=== PATIENT | female | born 1965 | race Two or more races ===

== ENCOUNTER 2019-09-13 13:51 | Emergency (ER) | payer OTHER ==
[~2019-09-13] VITALS: Ht 157.5 cm; Wt 79.4 kg
[2019-09-13 14:25] VITALS: BP 128/84
[2019-09-13] MEDS ORDERED: MAGNESIUM CITR296 M1 PO (14:54)
[2019-09-13] MEDS ORDERED: ANUSOL-HC25 MG RECTAL (14:54)
[2019-09-13] MEDS ORDERED: COLACE100 MG ORAL (14:54)
--- NOTE | 2019-09-13 15:05 | NUR ---
ER DISCHARGE NOTE: Patient is cleared to be discharged per ERMD, pt is aox4, on room air, with stable vital signs. pt was given dc and prescription instructions, pt was able to verbalize understanding, pt is able to ambulate with steady gait. pt took all belongings.
--- NOTE | 2019-09-13 16:45 | Emergency Room Report ---
History of Present Illness General Chief Complaint: Abdominal Pain Source: Patient, Caregiver Present Illness HPI 54-year-old female presents ED for evaluation. Complaining of constipation with nausea. States that she is been feeling constipated for the last few days. States that she noticed some blood in her stool. Denies any abdominal pain. Denies fevers or chills. Brick Machine Operator at bedside states patient does have history of breast cancer and is recently had chemo and radiation in the last month. None recently. No other aggravating relieving factors. Denies any other associated symptoms Allergies: Coded Allergies: No Known Allergies (Unverified , 09/13/19) Patient History Past Medical History: DM, other - breast cancer Past Surgical History: none Pertinent Family History: none Social History: Denies: smoking, alcohol use, drug use Last Menstrual Period: menopause Now: No Immunizations: UTD Reviewed Nursing Documentation: PMH: Agreed; PSxH: Agreed Nursing Documentation-PMH Past Medical History: No History, Except For Hx Diabetes: Yes Hx Cancer: Yes - Right breast, s/p lumpectomy Review of Systems All Other Systems: negative except mentioned in HPI Physical Exam Vital Signs Date Time Temp Pulse Resp B/P (MAP) Pulse Ox O2 Delivery O2 Flow Rate FiO2 09/13/19 14:00 98.6 92 18 128/84 (99) 95 Room Air Sp02 EP Interpretation: reviewed, normal General Appearance: no apparent distress, alert, GCS 15, non-toxic Head: normocephalic, atraumatic Eyes: bilateral eye normal inspection, bilateral eye PERRL ENT: hearing grossly normal, normal pharynx, no angioedema, normal voice Neck: full range of motion, supple/symm/no masses Respiratory: chest non-tender, lungs clear, normal breath sounds, speaking full sentences Cardiovascular #1: regular rate, rhythm, no edema Cardiovascular #2: 2+ carotid (R), 2+ carotid (L), 2+ radial (R), 2+ radial (L) , 2+ dorsalis pedis (R), 2+ dorsalis pedis (L) Gastrointestinal: normal bowel sounds, non tender, soft, non-distended, no guarding, no rebound Rectal: other - stool in rectum. apartment maintenance technician at bedside. Genitourinary: normal inspection, no CVA tenderness Musculoskeletal: back normal, normal range of motion, gait/station normal, non- tender Neurologic: alert, motor strength/tone normal, oriented x3, sensory intact, responsive, speech normal Psychiatric: judgement/insight normal, memory normal, mood/affect normal, no suicidal/homicidal ideation Reflexes: 3+ bicep (R), 3+ bicep (L), 3+ tricep (R), 3+ tricep (L), 3+ knee (R) , 3+ knee (L) Skin: no rash Lymphatic: no adenopathy Medical Decision Making Diagnostic Impression: Primary Impression: Hemorrhoids Qualified Codes: K64.9 - Unspecified hemorrhoids Additional Impression: Constipation Qualified Codes: K59.00 - Constipation, unspecified ER Course Hospital Course 54 yo F presents to ED with nausea, constipation. Differential diagnosis includes- hemorrhoids, constipation, SBO Clinical course Patient placed on stretcher. After initial history, physical exam reveals female in no acute distress. Abdomen soft. No guarding or rebound on exam. Brick Machine Operator at bedside. Rectal exam shows significant stool in the vault. No obvious hemorrhoids noted. No blood. discussed findings with patient and apartment maintenance technician. No evidence of acute abdomen. I do not believe imaging indicated at this time. I am not concerned for an obstruction. Will discharge with stool softeners. Safe for discharge for close outpatient follow-up. States she has a PMD I feel this is a highly complex case requiring extensive working including EKG/ Rhythm strip, Xray/CT/US, Blood/urine lab work, repeat exams while in ED, and administration of strong opiates/narcotics for pain control, admission to hospital or close patient follow up. Diagnosis - hemorrhoids, constipation Stable and discharged to home with Rx anusol, Mag citrate, Colace. instructed on high-fiber diet. Followup with PMD. Return to ED if symptoms recur or worsen Last Vital Signs Date Time Temp Pulse Resp B/P (MAP) Pulse Ox O2 Delivery O2 Flow Rate FiO2 09/13/19 14:25 98.6 18 128/84 95 Room Air 09/13/19 14:25 92 Status: improved Disposition: HOME, SELF-CARE Condition: Stable Scripts Magnesium Citrate (MAGNESIUM CITRATE) 296 Ml Solution 150 ML PO DAILY for 2 Days, #296 ML Prov: Danial Keller MD 09/13/19 Docusate Sodium* (COLACE*) 100 Mg Capsule 100 MG ORAL THREE TIMES A DAY, #30 CAP Prov: Danial Keller MD 09/13/19 Hydrocortisone Acetate* (ANUSOL-HC*) 25 Mg Supp.rect 1 SUPP RECTAL TWICE A DAY, #10 SUPP Prov: Danial Keller MD 09/13/19 Referrals: [facility] Patient Instructions: Constipation, Adult, [id number] Danial Keller MD Sep 13, 2019 16:45
[2019-09-13 18:37] VITALS: BP 128/84
== END 2019-09-13 15:10 | disposition home or self-care (01) ==
LOC: EMR 14:36
DX: K64.9 Unspecified hemorrhoids (principal); K59.00 Constipation, unspecified; E11.9 Type 2 diabetes mellitus without complications; Z85.3 Personal history of malignant neoplasm of breast; Z98.890 Other specified postprocedural states
CPT/HCPCS: 99282

== ENCOUNTER 2020-09-19 13:37 | Emergency (ER) | payer OTHER ==
[~2020-09-19] VITALS: Ht 157.5 cm; Wt 81.6 kg
[~2020-09-19 13:37] MED LIST: ANUSOL-HC25 MG RECTAL; COLACE100 MG ORAL; MAGNESIUM CITR296 M1 PO
[2020-09-19 13:55] VITALS: BP 111/61
--- NOTE | 2020-09-19 14:14 | Emergency Room Report ---
History of Present Illness General Chief Complaint: Flu Like Symptoms Source: Patient, Caregiver Present Illness HPI 55-year-old female PMhx DM and developmental delay presents with flulike symptoms x 3 days. Hx is limited 2/2 pt's baseline developmental delay. I spoke with Caregiver Echo [phone] and Court shoe parts caser who states that patient lives at home with her son and hash 24 hr care support at home. States that patient has been complaining of sore throat, cough, and vomiting x 1. Vomiting is non bloody and non bilious States she has hx of COVID dx in March 2020. Self-resolved after self quarantine. Episode was similar in presentation to today. The patient's symptoms were gradual onset, severity was moderate, duration since 3 days. Quality: generally weak Past medical history: DM, developmental delay Past surgical history: Denies Smoking: Denies Alcohol use: Denies Drug use: Denies Review of systems: CONST: No fevers or chills, No night sweats PULMONARY: ++ dry cough, No shortness of breath CARDIAC: No chest pain, No palpitations GI: ++ vomiting, No diarrhea , No melena_or_BRBPR : No dysuria, No hematuria, No discharge NEURO: No new_focal_weakness_or_numbness, No confusion, No vision changes 14 point Review of Systems is otherwise negative except per HPI Physical Exam: GENERAL: Awake_alert_ nontoxic, no acute distress Spo2 97% on RA -normal. Febrile. EYES: Extraocular muscles are intact. Conjunctivae clear. Lids without swelling ENT: External nose and ear normal_in_appearance. Oropharynx clear. Head_atra umatic, Moist_oral_mucosa NECK: No JVD. No meningismus. No thyromegaly. Supple. Trachea midline RESP: Normal respiratory effort. Symmetric rise. No stridor. Clear_to_auscultation_No_rales_No_wheezes CARDIAC: Regular rate and regular rhytm. No_significant pedal edema. ABDOMEN: Soft. Nondistended. Nontender_No_rebound_or_guarding. MSK: Normal muscle tone, without rigidity. Extremities without asymmetric deformity or swelling. SKIN: Warm and dry. No visible cyanosis or pallor. No petechiae NEUROLOGIC: Motor_and_sensation_grossly_intact. No truncal ataxia. Gait_normal Psych: Normal mood and affect, normal judgment and insight - COORDINATION OF CARE Case was discussed with: Patient , Patient's Family Any labs and imaging that were ordered were interpreted as part of the medical decision making: Medical Decision Making/Plan: DDx: includes COVID-19 / coronavirus infection, URI, bronchitis, viral syndrome, postnasal drip, versus less likely pneumonia, among others. The patient is nontoxic and well-appearing and has no significant shortness of breath. The patient exhibits no evidence of respiratory distress. Chest x-ray revealed atelectasis vs infiltrate. Suspicion for COVID 2/2 previous hx of COVID in March 2020. No evidence of ENT emergency, airway patent, tolerating oral liquids and solids. No stridor or difficulty breathing. Abdominal exam is benign with no TTP or masses. Episode of vomiting was post-tussive. Doubt surgical pathology. Tonsils within normal limits, no evidence of swelling, exudate or strep pharyngitis. No indication for empiric antibiotic treatment. Sublingual space soft. The patient and caregiver wer instructed to follow up with their physician and instructed to return if worsens, progressively worsening shortness of breath or difficulty breathing, persistent fever, chest pains or discomfort, inability to keep medication or fluids down with or without vomiting, or any other new, worsening or concerning symptoms Based on the patients presenting signs, symptoms, exam, and risk factors (living in an area endemic for a coronavirus outbreak = [place]), the patient has been screened for coronavirus infection and is suspected of having COVID 19. Patient was nontoxic with benign vital signs. Patient did not meet admission criteria and was stable for outpatient therapy. Patient was instructed to home quarantine for 14 days or until 3 days after their last fever, whichever is longer. Appropriate precautions were given. Strict return precautions given, including but limited to: Patient educated to notify a healthcare professional if they develop further symptoms that include chest pain, palpitations, significant SOB, fever, or other concerning symptoms. Discussed supportive care with rest, hydration, frequent handwashing and Tylenol and Motrin [id number] as needed for pain or fevers. Discussed strict return precautions. Verbal discharge with written instructions were given for COVID- 19. Patient is instructed to follow up with their primary care provider in 1-2 days, or return to the ED for worsening symptoms. Return to ED precautions were given. Allergies: Coded Allergies: No Known Allergies (Unverified , 09/13/19) COVID-19 Screening Contact w/high risk pt: No Experienced COVID-19 symptoms?: Yes COVID-19 Testing performed DENTAL SERVICE CHIEF: No Patient History Last Menstrual Period: na Nursing Documentation-PMH Past Medical History: No History, Except For Hx Cardiac Problems: Yes Hx Diabetes: Yes Hx Cancer: Yes - Right breast, s/p lumpectomy Physical Exam Vital Signs Date Time Temp Pulse Resp B/P (MAP) Pulse Ox O2 Delivery O2 Flow Rate FiO2 09/19/20 13:39 100.6 100 20 111/61 (78) 97 Room Air Sp02 EP Interpretation: reviewed, normal Medical Decision Making Diagnostic Impression: Primary Impression: Suspected 2019-nCoV infection Additional Impressions: Sore throat Vomiting Rhythm Strip Diag. Results Rhythm Strip Time: 14:30 EP Interpretation: yes Rate: 100 Rhythm: no PVC's, no ectopy Other Impression Sinus tachycardia Chest X-Ray Diagnostic Results Chest X-Ray Diagnostic Results : MADI Guadalupe Text Chest X-Ray: Views: 1 view(s) Indication: COUGH Findings: Normal heart size. Mediastinum normal. Impression: LLL opacity vs atelectasis The X-ray(s) were independently viewed and interpreted contemporaneously Electronically signed by Aurora belcher DO Reevaluation Time: 15:02 Last Vital Signs Date Time Temp Pulse Resp B/P (MAP) Pulse Ox O2 Delivery O2 Flow Rate FiO2 09/19/20 13:55 100 20 Room Air 09/19/20 13:55 100.6 111/61 97 Status: improved Disposition: HOME, SELF-CARE Admit Decision Time: 15:02 Scripts Acetaminophen* (TYLENOL EXTRA STRENGTH*) 500 Mg Tablet 500 MG ORAL Q8H PRN for Prn Headache/Temp > 101, #30 TAB 0 Refills Prov: Aurora Galeana D.O. 09/19/20 Guaifenesin/D-Methorphan Hb/Pe (ROBITUSSIN COUGH-COLD CF LIQ*) 118 Ml Liquid 5 ML ORAL Q6H PRN for FOR COUGH, #118 ML Prov: Aurora Galeana D.O. 09/19/20 Azithromycin* (ZITHROMAX*) 250 Mg Tablet 250 MG ORAL DAILY, #6 TAB 0 Refills Take two tables once daily for 1 day, then one tablet once daily for 4 days. Prov: Aurora Galeana D.O. 09/19/20 Referrals: [facility],REFERRING (PCP) Patient Instructions: Community-Acquired Pneumonia, Adult, [id number] Additional Instructions: Instructions for patient/case management specialist: Follow up with your physician in 1-2 days. Follow-up with your doctor sooner if your condition requires a more timely clinical reevaluation. Return to the emergency department immediately if you feel that your condition is worsening or if you have any new or concerning symptoms. Review your discharge instructions and take any prescriptions given as instructed. [facility] PROVIDES FREE OR LOW-COST HEALTH SERVICES TO PEOPLE WHO CAN SHOW PROOF THAT THEY LIVE IN [facility]. TO FIND MORE CLINICS PARTNERED WITH [facility] TO PROVIDE SERVICE, PLEASE CALL . Your evaluation suggests that you are suffering from a viral infection producing a viral syndrome. You can sign up for testing with [facility] at the following website as discussed [email or web address] Symptoms of a viral syndrome may include fever, sore throat, headache, body aches and pains, generalized weakness and fatigue, and runny nose. You do not show signs or symptoms suggestive of a serious or life threatening illness. This illness may be caused by a number of different viruses, including Influenza A or B or COVID-19. These viruses are highly contagious and spread rapidly from person to person via coughing and sneezing of the virus or by contaminated surface contact with nasal or other respiratory secretions. These viruses cause a similar combination of signs and symptoms which are typically much more severe than the common cold. Typically they begin with the rapid onset of fever, often high (over 102), body aches, fatigue, headache, and usually upper respiratory tract infections symptoms such as cough, runny nose, and sore throat. The illness typically lasts 7-10 days, with the fever and feelings of weakness and body aches usually lasting 3-5 days. Your own immune system fights off these infections. Only rarely do secondary bacterial infections occur (such as bacterial pneumonia) and can be serious. At this time your symptoms do not appear serious, however, there are limitations to online visits and if you are not improving you may need to be evaluated by a doctor in person and that doctor may need to do additional tests. INSTRUCTIONS: Illnesses such as yours typically resolve on their own with time however you must remember to stay hydrated and drink 2-3 times your normal fluid intake, as fever and your increased metabolism in fighting the infection uses more water. Fever control is important to help you feel better and to help prevent dehydration. Acetaminophen is an excellent choice for fever control and other symptoms (as long as you are not allergic to the medication). Rest is also important in helping your body fight this infection. Over the counter cough and decongestant medications are safe (as long as you dont have uncontrolled high b lood pressure) and may help the cough and congestion slightly. As these viruses are highly contagious, good hand washing habits, and covering your cough and sneeze help prevent spread. Fever can be a sign of a serious infection and it is imperative that you go directly to an Emergency Department for serious symptoms such as weakness, confusion, significant shortness of breath, abdominal pain, or severe headache. Close follow up with a physician is important if you are not improving over the next few days or you experience worsening of your symptoms. Although it is impossible to know at this point if you have COVID-19 (the Sebastian virus), please quarantine yourself and anyone else that is residing with you for the longer of the following time periods: 14 days OR 3 days after the last of your symptoms has resolved CONTACT THE DOCTOR RIGHT AWAY if you develop worsening symptoms such as shortness of breath, chest pain, neck stiffness, confusion or any other new, worsening, or concerning symptoms. For emergencies contact 911 immediately. Aurora Galeana D.O. Sep 19, 2020 14:14
[2020-09-19] MEDS ORDERED: Acetaminophen 500mg (ES) tab ORAL ONE (14:15)
[2020-09-19] MEDS ORDERED: guaiFENesin 100mg/5ml Liq ud ORAL PRN (14:15)
[2020-09-19 14:40] VITALS: BP 114/65
--- NOTE | 2020-09-19 14:49 | Diagnostic Imaging Report ---
EXAM: XR Chest, 1 View CLINICAL HISTORY: SOB TECHNIQUE: Frontal view of the chest. COMPARISON: None FINDINGS: Hardware: None. Lungs/pleura: Low lung volumes. Lower lung opacities. No pleural effusion or pneumothorax. Heart/mediastinum: Normal. No cardiomegaly. Soft tissues: Unremarkable. Bones: No acute fracture. Upper abdomen: Normal. IMPRESSION: Lower lung opacities may represent atelectasis versus infectious/inflammatory process.
[2020-09-19] MEDS ORDERED: ZITHROMAX250 MG ORAL (14:50)
[2020-09-19] MEDS ORDERED: ROBITUSSIN COU118 M1 ORAL (14:50)
[2020-09-19] MEDS ORDERED: TYLENOL EXTRA500 MG ORAL (14:50)
[2020-09-19] MEDS ORDERED: Azithromycin 250mg tab ORAL ONE (15:00)
[2020-09-19 16:20] VITALS: BP 114/65
== END 2020-09-19 16:22 | disposition home or self-care (01) ==
LOC: EMR 14:08
DX: Z11.59 Encounter for screening for other viral diseases (principal); J02.9 Acute pharyngitis, unspecified; R11.10 Vomiting, unspecified; F89 Unspecified disorder of psychological development; E11.9 Type 2 diabetes mellitus without complications; I51.9 Heart disease, unspecified; Z85.3 Personal history of malignant neoplasm of breast; Z86.19 Personal history of other infectious and parasitic diseases
CPT/HCPCS: 71045; Q0144; Z7502; 99283